=== PATIENT | male | born 1960 | race Caucasian/White ===

== ENCOUNTER 2017-07-26 14:34 | Emergency (ER) | payer OTHER ==
[~2017-07-26] VITALS: Ht 180.3 cm; Wt 87.0 kg
[~2017-07-26 14:34] MED LIST: BENICAR; BENICAR PO; BENICAR5 MG PO; CENTRUM SILVER1 EACH PO; CRESTOR20 MG PO; LIBRIUM PO; METHADONE; PAXIL; PAXIL30 MG PO; PAXIL40 MG PO; TOPAMAX50 MG PO
[2017-07-26] MEDS ORDERED: XYLOCAINE VISC100 ML PO (16:38)
[2017-07-26 16:52] VITALS: BP 124/82
== END 2017-07-26 16:53 | disposition home or self-care (01) ==
LOC: EME 14:34
DX: R07.0 Pain in throat (principal); I10 Essential (primary) hypertension; F32.9 Major depressive disorder, single episode, unspecified
CPT/HCPCS: 71020; 99281; 99283